=== PATIENT | male | born 1950 | race Caucasian/White ===

== ENCOUNTER → 2023-08-13 13:57 | Outpatient (REF) | payer MEDICARE, OTHER, SELFPAY | LOC: RCS 13:57 | PROVIDERS: ATTENDING PHYSICIAN Internal Medicine Cardiovascular Disease; FAMILY PHYSICIAN Internal Medicine | DX: I49.3 Ventricular premature depolarization (principal) | CPT/HCPCS: 93306 ==

== ENCOUNTER → 2024-07-18 06:40 | Outpatient (REF) | payer MEDICARE, OTHER, SELFPAY ==
[2024-07-18] MEDS: LEXISCAN 0.4 MG IV (08:15)
== END ==
LOC: RCS 06:40
PROVIDERS: ATTENDING PHYSICIAN Internal Medicine Cardiovascular Disease; FAMILY PHYSICIAN Internal Medicine
DX: R06.09 Other forms of dyspnea (principal)
CPT/HCPCS: 78452; 93017; A9500; J2785